=== PATIENT | male | born 1975 | race Two or more races ===

== ENCOUNTER 2021-03-04 18:39 | Inpatient (IN) | payer OTHER ==
[2021-03-04] MEDS ORDERED: MELATONIN 5 MG TABLETS PO SCH (22:00)
[2021-03-04] MEDS ORDERED: P-EPHED 60MG/TRIPROLIDI 2.5MG TABLET PO PRN (23:16)
[2021-03-04] MEDS ORDERED: NICOTINE POLACRILEX 2 MG GUM BC PRN (23:16)
[2021-03-04] MEDS ORDERED: LOPERAMIDE HCL 2 MG CAPSULE PO PRN (23:16)
[2021-03-04] MEDS ORDERED: MAG HYDROX/AL HYDROX/SIMETH 30 ML UNIT-DOSE CUP PO PRN (23:16)
[2021-03-04] MEDS ORDERED: MAGNESIUM CITRATE 300 ML BOTTLE PO PRN (23:16)
[2021-03-04] MEDS ORDERED: guaiFENesin 200 MG/10 ML 10 ML UNIT-DOSE CUPS PO PRN (23:16)
[2021-03-04] MEDS ORDERED: MAGNESIUM HYDROX 2400MG/30ML ORAL SUSPENSION 30 ML CUP PO PRN (23:16)
[2021-03-04] MEDS ORDERED: ACETAMINOPHEN 325 MG TABLET (FP) PO PRN (23:16)
[2021-03-04] MEDS ORDERED: IBUPROFEN 400 MG TABLET (FP) PO PRN (23:16)
[2021-03-05 04:07] VITALS: BMI 34.6
[2021-03-05] MEDS ORDERED: TUBERCULIN PPD 5 TU/0.1ML VIAL ID ONE (07:11)
[2021-03-05] MEDS ORDERED: methaDONE HCL 10 MG TABLET PO ONE (09:10)
[2021-03-05] MEDS ORDERED: methaDONE 40 MG, methaDONE 10 MG PO ONE (09:20)
[2021-03-05] MEDS ORDERED: methaDONE HCL 40 MG DISPERSABLE TABLET ONE (09:29)
[2021-03-05] MEDS ORDERED: methaDONE HCL 10 MG TABLET ONE (09:29)
[2021-03-05] MEDS: PRENATAL VITAMINS W/ FOLIC ACID TABLET (FP) PO SCH (09:39)
[2021-03-05 11:07] LABS: HEMATOCRIT 37.5 % (35.4-49); MCH 28.5 pg (25.7-33.7); MCHC 34.5 g/dl (32.0-35.9); MEAN CELL VOLUME 82.6 fl (80-96); MEAN PLT VOLUME 8.4 fl (7.5-11.1); PLATELET COUNT 296 10^3/uL (134-434); RBC 4.55 M/mm3 (4.00-5.60); RDW 14.8 % (11.9-15.9); WHITE BLOOD COUNT 6.9 K/mm3 (4.0-10.0)
[2021-03-05 11:19] LABS: ALBUMIN 3.4 g/dl (3.4-5.0); BLOOD UREA NITROGEN 20.9 mg/dL (7-18); CALCIUM 8.8 mg/dL (8.5-10.1)
[2021-03-05 11:22] LABS: CREATININE 0.8 mg/dL (0.55-1.3)
[2021-03-05 11:24] LABS: BILIRUBIN,TOTAL 0.7 mg/dL (0.2-1); TOT PROT 6.3 g/dl (6.4-8.2)
[2021-03-05] MEDS ORDERED: PT OWN MED DRAWER 7, Y5N ONE (21:27)
[2021-03-05] MEDS: SUVOREXANT 10 MG TABLET PO PRN (21:30)
[2021-03-05] MEDS: TIMOLOL 0.5% OPHTHALMIC SOL 5 ML BOTTLE OU SCH (21:33)
[2021-03-05] MEDS: LATANOPROST 0.005% OPHTH SOLN 2.5ML BOTTLE OU SCH (21:35)
[2021-03-05] MEDS: GABAPENTIN 300 MG CAPSULE PO SCH (21:36)
[2021-03-05] MEDS: THIAMINE HCL 100 MG TABLET (FP) PO SCH (21:36)
[2021-03-05] MEDS: hydrOXYzine PAMOATE 25 MG CAPSULE (FP) PO PRN (21:36)
[2021-03-05] MEDS: TOPIRAMATE 25 MG TABLET PO SCH (22:44)
[2021-03-06] MEDS ORDERED: methaDONE HCL 10 MG TABLET PO SCH (06:00)
[2021-03-06] MEDS ORDERED: methaDONE HCL 10 MG TABLET ONE (06:03)
[2021-03-06] MEDS ORDERED: methaDONE HCL 40 MG DISPERSABLE TABLET ONE (06:03)
[2021-03-06] MEDS: methaDONE 40 MG, methaDONE 10 MG PO SCH (07:21)
[2021-03-06] MEDS: GABAPENTIN 300 MG CAPSULE PO SCH ×2 (09:17→21:38)
[2021-03-06] MEDS: ESCITALOPRAM OXALATE 20 MG TABLET PO SCH (09:17)
[2021-03-06] MEDS: PRENATAL VITAMINS W/ FOLIC ACID TABLET (FP) PO SCH (09:17)
[2021-03-06] MEDS: TIMOLOL 0.5% OPHTHALMIC SOL 5 ML BOTTLE OU SCH ×2 (09:18→21:39)
[2021-03-06] MEDS: TOPIRAMATE 25 MG TABLET PO SCH ×2 (09:18→21:38)
[2021-03-06] MEDS: QUEtiapine FUMARATE 25 MG TABLET PO SCH (09:18)
[2021-03-06] MEDS ORDERED: ESCITALOPRAM OXALATE 20 MG TABLET PO SCH (10:00)
[2021-03-06 12:37] LABS: PH,URINE 5.5 (5.0-8.0); URINE APPEARANCE CLEAR; URINE BILIRUBIN NEGATIVE (NEGATIVE); URINE COLOR YELLOW; URINE GLUCOSE (UA) NEGATIVE (NEGATIVE); URINE KETONE NEGATIVE (NEGATIVE); URINE LEUK ESTERASE NEGATIVE (NEGATIVE); URINE NITRITE NEGATIVE (NEGATIVE); URINE PROTEIN NEGATIVE (NEGATIVE); URINE UROBILINOGEN 0.2 mg/dL (0.2-1.0)
[2021-03-06] MEDS: THIAMINE HCL 100 MG TABLET (FP) PO SCH (21:37)
[2021-03-06] MEDS: SUVOREXANT 10 MG TABLET PO PRN (21:38)
[2021-03-06] MEDS: LATANOPROST 0.005% OPHTH SOLN 2.5ML BOTTLE OU SCH (21:39)
[2021-03-07] MEDS ORDERED: methaDONE HCL 40 MG DISPERSABLE TABLET ONE (03:51)
[2021-03-07] MEDS ORDERED: methaDONE HCL 10 MG TABLET ONE (03:52)
[2021-03-07] MEDS: methaDONE 40 MG, methaDONE 10 MG PO SCH (07:07)
[2021-03-07] MEDS: ESCITALOPRAM OXALATE 20 MG TABLET PO SCH (09:46)
[2021-03-07] MEDS: TOPIRAMATE 25 MG TABLET PO SCH ×2 (09:47→21:19)
[2021-03-07] MEDS: GABAPENTIN 300 MG CAPSULE PO SCH ×2 (09:47→21:19)
[2021-03-07] MEDS: TIMOLOL 0.5% OPHTHALMIC SOL 5 ML BOTTLE OU SCH ×2 (09:47→21:20)
[2021-03-07] MEDS: PRENATAL VITAMINS W/ FOLIC ACID TABLET (FP) PO SCH (09:47)
[2021-03-07] MEDS: QUEtiapine FUMARATE 25 MG TABLET PO SCH (09:47)
[2021-03-07] MEDS: THIAMINE HCL 100 MG TABLET (FP) PO SCH (21:19)
[2021-03-07] MEDS: LATANOPROST 0.005% OPHTH SOLN 2.5ML BOTTLE OU SCH (21:20)
[2021-03-07] MEDS: SUVOREXANT 10 MG TABLET PO PRN (21:20)
[2021-03-08] MEDS ORDERED: methaDONE HCL 40 MG DISPERSABLE TABLET ONE (03:42)
[2021-03-08] MEDS ORDERED: methaDONE HCL 10 MG TABLET ONE (03:43)
[2021-03-08] MEDS: methaDONE 40 MG, methaDONE 10 MG PO SCH (06:21)
[2021-03-08] MEDS: GABAPENTIN 300 MG CAPSULE PO SCH ×2 (09:43→21:40)
[2021-03-08] MEDS: ESCITALOPRAM OXALATE 20 MG TABLET PO SCH (09:43)
[2021-03-08] MEDS: PRENATAL VITAMINS W/ FOLIC ACID TABLET (FP) PO SCH (09:44)
[2021-03-08] MEDS: QUEtiapine FUMARATE 25 MG TABLET PO SCH (09:44)
[2021-03-08] MEDS: TOPIRAMATE 25 MG TABLET PO SCH ×2 (09:44→21:40)
[2021-03-08] MEDS: TIMOLOL 0.5% OPHTHALMIC SOL 5 ML BOTTLE OU SCH ×2 (09:44→21:41)
[2021-03-08] MEDS ORDERED: PT OWN MED DRAWER 7, Y5N ONE (20:27)
[2021-03-08] MEDS: THIAMINE HCL 100 MG TABLET (FP) PO SCH (21:40)
[2021-03-08] MEDS: SUVOREXANT 10 MG TABLET PO PRN (21:40)
[2021-03-08] MEDS: LATANOPROST 0.005% OPHTH SOLN 2.5ML BOTTLE OU SCH (21:41)
[2021-03-09] MEDS ORDERED: methaDONE HCL 10 MG TABLET ONE (03:29)
[2021-03-09] MEDS ORDERED: methaDONE HCL 40 MG DISPERSABLE TABLET ONE (03:29)
[2021-03-09] MEDS: methaDONE 40 MG, methaDONE 10 MG PO SCH (06:16)
[2021-03-09] MEDS: PRENATAL VITAMINS W/ FOLIC ACID TABLET (FP) PO SCH (09:53)
[2021-03-09] MEDS: TOPIRAMATE 25 MG TABLET PO SCH ×2 (09:54→21:34)
[2021-03-09] MEDS: ESCITALOPRAM OXALATE 20 MG TABLET PO SCH (09:54)
[2021-03-09] MEDS: GABAPENTIN 300 MG CAPSULE PO SCH ×2 (10:49→21:34)
[2021-03-09] MEDS: QUEtiapine FUMARATE 25 MG TABLET PO SCH (10:49)
[2021-03-09] MEDS: TIMOLOL 0.5% OPHTHALMIC SOL 5 ML BOTTLE OU SCH ×2 (10:50→21:35)
[2021-03-09] MEDS: THIAMINE HCL 100 MG TABLET (FP) PO SCH (21:35)
[2021-03-09] MEDS: LATANOPROST 0.005% OPHTH SOLN 2.5ML BOTTLE OU SCH (21:35)
[2021-03-09] MEDS: SUVOREXANT 10 MG TABLET PO PRN (21:36)
[2021-03-10] MEDS ORDERED: methaDONE HCL 40 MG DISPERSABLE TABLET ONE (05:22)
[2021-03-10] MEDS ORDERED: methaDONE HCL 10 MG TABLET ONE (05:23)
[2021-03-10] MEDS: methaDONE 40 MG, methaDONE 10 MG PO SCH (06:34)
[2021-03-10] MEDS: ESCITALOPRAM OXALATE 20 MG TABLET PO SCH (09:16)
[2021-03-10] MEDS: PRENATAL VITAMINS W/ FOLIC ACID TABLET (FP) PO SCH (09:16)
[2021-03-10] MEDS: GABAPENTIN 300 MG CAPSULE PO SCH ×2 (09:16→21:06)
[2021-03-10] MEDS: QUEtiapine FUMARATE 25 MG TABLET PO SCH (09:16)
[2021-03-10] MEDS: TOPIRAMATE 25 MG TABLET PO SCH ×2 (09:16→21:06)
[2021-03-10] MEDS: TIMOLOL 0.5% OPHTHALMIC SOL 5 ML BOTTLE OU SCH ×2 (09:17→21:07)
[2021-03-10] MEDS: THIAMINE HCL 100 MG TABLET (FP) PO SCH (21:06)
[2021-03-10] MEDS: LATANOPROST 0.005% OPHTH SOLN 2.5ML BOTTLE OU SCH (21:07)
[2021-03-10] MEDS: SUVOREXANT 10 MG TABLET PO PRN (21:07)
[2021-03-11] MEDS ORDERED: methaDONE HCL 10 MG TABLET ONE (02:52)
[2021-03-11] MEDS ORDERED: methaDONE HCL 40 MG DISPERSABLE TABLET ONE (02:52)
[2021-03-11] MEDS: methaDONE 40 MG, methaDONE 10 MG PO SCH (06:40)
[2021-03-11] MEDS: PRENATAL VITAMINS W/ FOLIC ACID TABLET (FP) PO SCH (09:39)
[2021-03-11] MEDS: ESCITALOPRAM OXALATE 20 MG TABLET PO SCH (09:40)
[2021-03-11] MEDS: GABAPENTIN 300 MG CAPSULE PO SCH ×2 (09:40→21:18)
[2021-03-11] MEDS: TIMOLOL 0.5% OPHTHALMIC SOL 5 ML BOTTLE OU SCH ×2 (09:40→21:25)
[2021-03-11] MEDS: TOPIRAMATE 25 MG TABLET PO SCH ×2 (09:41→21:18)
[2021-03-11] MEDS: QUEtiapine FUMARATE 50 MG TABLET PO SCH (09:44)
[2021-03-11] MEDS: THIAMINE HCL 100 MG TABLET (FP) PO SCH (21:18)
[2021-03-11] MEDS: SUVOREXANT 10 MG TABLET PO PRN (21:19)
[2021-03-11] MEDS: LATANOPROST 0.005% OPHTH SOLN 2.5ML BOTTLE OU SCH (21:25)
[2021-03-12] MEDS ORDERED: methaDONE HCL 10 MG TABLET ONE (02:58)
[2021-03-12] MEDS ORDERED: methaDONE HCL 40 MG DISPERSABLE TABLET ONE (02:58)
[2021-03-12] MEDS: methaDONE 40 MG, methaDONE 10 MG PO SCH (06:51)
[2021-03-12] MEDS: ESCITALOPRAM OXALATE 20 MG TABLET PO SCH (09:37)
[2021-03-12] MEDS: PRENATAL VITAMINS W/ FOLIC ACID TABLET (FP) PO SCH (09:37)
[2021-03-12] MEDS: TOPIRAMATE 25 MG TABLET PO SCH ×2 (09:37→21:48)
[2021-03-12] MEDS: QUEtiapine FUMARATE 50 MG TABLET PO SCH (09:37)
[2021-03-12] MEDS: GABAPENTIN 300 MG CAPSULE PO SCH ×2 (09:37→21:47)
[2021-03-12] MEDS: TIMOLOL 0.5% OPHTHALMIC SOL 5 ML BOTTLE OU SCH ×2 (09:38→21:47)
[2021-03-12] MEDS: LATANOPROST 0.005% OPHTH SOLN 2.5ML BOTTLE OU SCH (21:48)
[2021-03-12] MEDS: THIAMINE HCL 100 MG TABLET (FP) PO SCH (21:48)
[2021-03-12] MEDS: hydrOXYzine PAMOATE 25 MG CAPSULE (FP) PO PRN (21:50)
[2021-03-12] MEDS: SUVOREXANT 10 MG TABLET PO PRN (21:50)
[2021-03-13] MEDS ORDERED: methaDONE HCL 40 MG DISPERSABLE TABLET ONE (03:36)
[2021-03-13] MEDS ORDERED: methaDONE HCL 10 MG TABLET ONE (03:36)
[2021-03-13] MEDS: methaDONE 40 MG, methaDONE 10 MG PO SCH (06:34)
[2021-03-13] MEDS: QUEtiapine FUMARATE 50 MG TABLET PO SCH (10:54)
[2021-03-13] MEDS: PRENATAL VITAMINS W/ FOLIC ACID TABLET (FP) PO SCH (10:54)
[2021-03-13] MEDS: GABAPENTIN 300 MG CAPSULE PO SCH ×2 (10:54→21:25)
[2021-03-13] MEDS: ESCITALOPRAM OXALATE 20 MG TABLET PO SCH (10:55)
[2021-03-13] MEDS: TOPIRAMATE 25 MG TABLET PO SCH ×2 (10:56→21:56)
[2021-03-13] MEDS: TIMOLOL 0.5% OPHTHALMIC SOL 5 ML BOTTLE OU SCH ×2 (10:56→21:57)
[2021-03-13] MEDS: THIAMINE HCL 100 MG TABLET (FP) PO SCH (21:25)
[2021-03-13] MEDS: hydrOXYzine PAMOATE 25 MG CAPSULE (FP) PO PRN (21:33)
[2021-03-13] MEDS: SUVOREXANT 10 MG TABLET PO PRN (21:56)
[2021-03-13] MEDS: LATANOPROST 0.005% OPHTH SOLN 2.5ML BOTTLE OU SCH (21:57)
[2021-03-14] MEDS ORDERED: methaDONE HCL 40 MG DISPERSABLE TABLET ONE (03:26)
[2021-03-14] MEDS ORDERED: methaDONE HCL 10 MG TABLET ONE (03:26)
[2021-03-14] MEDS: methaDONE 40 MG, methaDONE 10 MG PO SCH (06:21)
[2021-03-14] MEDS: QUEtiapine FUMARATE 50 MG TABLET PO SCH (10:21)
[2021-03-14] MEDS: PRENATAL VITAMINS W/ FOLIC ACID TABLET (FP) PO SCH (10:21)
[2021-03-14] MEDS: GABAPENTIN 300 MG CAPSULE PO SCH ×2 (10:21→22:00)
[2021-03-14] MEDS: ESCITALOPRAM OXALATE 20 MG TABLET PO SCH (10:21)
[2021-03-14] MEDS: TOPIRAMATE 25 MG TABLET PO SCH ×2 (10:22→22:00)
[2021-03-14] MEDS: TIMOLOL 0.5% OPHTHALMIC SOL 5 ML BOTTLE OU SCH ×2 (10:22→22:01)
[2021-03-14] MEDS: THIAMINE HCL 100 MG TABLET (FP) PO SCH (22:00)
[2021-03-14] MEDS: LATANOPROST 0.005% OPHTH SOLN 2.5ML BOTTLE OU SCH (22:01)
[2021-03-14] MEDS: SUVOREXANT 10 MG TABLET PO PRN (22:04)
[2021-03-15] MEDS ORDERED: methaDONE HCL 40 MG DISPERSABLE TABLET ONE (03:32)
[2021-03-15] MEDS ORDERED: methaDONE HCL 10 MG TABLET ONE (03:32)
[2021-03-15] MEDS: methaDONE 40 MG, methaDONE 10 MG PO SCH (07:05)
[2021-03-15] MEDS: QUEtiapine FUMARATE 50 MG TABLET PO SCH (10:28)
[2021-03-15] MEDS: ESCITALOPRAM OXALATE 20 MG TABLET PO SCH (10:28)
[2021-03-15] MEDS: GABAPENTIN 300 MG CAPSULE PO SCH ×2 (10:28→21:44)
[2021-03-15] MEDS: PRENATAL VITAMINS W/ FOLIC ACID TABLET (FP) PO SCH (10:28)
[2021-03-15] MEDS: TOPIRAMATE 25 MG TABLET PO SCH ×2 (10:29→21:47)
[2021-03-15] MEDS: TIMOLOL 0.5% OPHTHALMIC SOL 5 ML BOTTLE OU SCH ×2 (10:29→21:45)
[2021-03-15] MEDS: THIAMINE HCL 100 MG TABLET (FP) PO SCH (21:44)
[2021-03-15] MEDS: LATANOPROST 0.005% OPHTH SOLN 2.5ML BOTTLE OU SCH (21:45)
[2021-03-15] MEDS: SUVOREXANT 10 MG TABLET PO PRN (21:46)
[2021-03-16] MEDS ORDERED: methaDONE HCL 10 MG TABLET ONE (05:21)
[2021-03-16] MEDS ORDERED: methaDONE HCL 40 MG DISPERSABLE TABLET ONE (05:22)
[2021-03-16] MEDS: methaDONE 40 MG, methaDONE 10 MG PO SCH (06:21)
[2021-03-16] MEDS: PRENATAL VITAMINS W/ FOLIC ACID TABLET (FP) PO SCH (10:11)
[2021-03-16] MEDS: GABAPENTIN 300 MG CAPSULE PO SCH ×2 (10:11→21:37)
[2021-03-16] MEDS: QUEtiapine FUMARATE 50 MG TABLET PO SCH (10:11)
[2021-03-16] MEDS: ESCITALOPRAM OXALATE 20 MG TABLET PO SCH (10:11)
[2021-03-16] MEDS: TOPIRAMATE 25 MG TABLET PO SCH ×2 (10:12→21:36)
[2021-03-16] MEDS: TIMOLOL 0.5% OPHTHALMIC SOL 5 ML BOTTLE OU SCH ×2 (10:12→21:37)
[2021-03-16] MEDS: hydrOXYzine PAMOATE 25 MG CAPSULE (FP) PO PRN (10:12)
[2021-03-16] MEDS: THIAMINE HCL 100 MG TABLET (FP) PO SCH (21:36)
[2021-03-16] MEDS: LATANOPROST 0.005% OPHTH SOLN 2.5ML BOTTLE OU SCH (21:37)
[2021-03-16] MEDS: SUVOREXANT 10 MG TABLET PO PRN (21:40)
[2021-03-17] MEDS ORDERED: methaDONE HCL 40 MG DISPERSABLE TABLET ONE (03:18)
[2021-03-17] MEDS ORDERED: methaDONE HCL 10 MG TABLET ONE (03:18)
[2021-03-17] MEDS: methaDONE 40 MG, methaDONE 10 MG PO SCH (06:22)
[2021-03-17] MEDS: ESCITALOPRAM OXALATE 20 MG TABLET PO SCH (10:19)
[2021-03-17] MEDS: GABAPENTIN 300 MG CAPSULE PO SCH ×2 (10:19→21:26)
[2021-03-17] MEDS: PRENATAL VITAMINS W/ FOLIC ACID TABLET (FP) PO SCH (10:19)
[2021-03-17] MEDS: QUEtiapine FUMARATE 50 MG TABLET PO SCH (10:20)
[2021-03-17] MEDS: TOPIRAMATE 25 MG TABLET PO SCH ×2 (10:20→21:26)
[2021-03-17] MEDS: TIMOLOL 0.5% OPHTHALMIC SOL 5 ML BOTTLE OU SCH ×2 (10:22→21:24)
[2021-03-17] MEDS: hydrOXYzine PAMOATE 25 MG CAPSULE (FP) PO PRN ×2 (10:23→21:26)
[2021-03-17] MEDS: THIAMINE HCL 100 MG TABLET (FP) PO SCH (21:26)
[2021-03-17] MEDS: LATANOPROST 0.005% OPHTH SOLN 2.5ML BOTTLE OU SCH (21:27)
[2021-03-17] MEDS: SUVOREXANT 10 MG TABLET PO PRN (21:30)
[2021-03-18] MEDS ORDERED: methaDONE HCL 10 MG TABLET ONE (03:11)
[2021-03-18] MEDS ORDERED: methaDONE HCL 40 MG DISPERSABLE TABLET ONE (03:11)
[2021-03-18] MEDS: methaDONE 40 MG, methaDONE 10 MG PO SCH (06:22)
[2021-03-18] MEDS: GABAPENTIN 300 MG CAPSULE PO SCH ×2 (10:38→21:44)
[2021-03-18] MEDS: PRENATAL VITAMINS W/ FOLIC ACID TABLET (FP) PO SCH (10:38)
[2021-03-18] MEDS: TOPIRAMATE 25 MG TABLET PO SCH ×2 (10:39→21:44)
[2021-03-18] MEDS: TIMOLOL 0.5% OPHTHALMIC SOL 5 ML BOTTLE OU SCH ×2 (10:39→21:45)
[2021-03-18] MEDS: ESCITALOPRAM OXALATE 20 MG TABLET PO SCH (10:39)
[2021-03-18] MEDS: QUEtiapine FUMARATE 50 MG TABLET PO SCH (10:39)
[2021-03-18] MEDS: SUVOREXANT 10 MG TABLET PO PRN (21:44)
[2021-03-18] MEDS: THIAMINE HCL 100 MG TABLET (FP) PO SCH (21:44)
[2021-03-18] MEDS: LATANOPROST 0.005% OPHTH SOLN 2.5ML BOTTLE OU SCH (21:44)
[2021-03-19] MEDS ORDERED: methaDONE HCL 10 MG TABLET ONE (03:34)
[2021-03-19] MEDS ORDERED: methaDONE HCL 40 MG DISPERSABLE TABLET ONE (03:34)
[2021-03-19] MEDS: methaDONE 40 MG, methaDONE 10 MG PO SCH (06:15)
[2021-03-19] MEDS: PRENATAL VITAMINS W/ FOLIC ACID TABLET (FP) PO SCH (10:09)
[2021-03-19] MEDS: GABAPENTIN 300 MG CAPSULE PO SCH ×2 (10:10→22:09)
[2021-03-19] MEDS: ESCITALOPRAM OXALATE 20 MG TABLET PO SCH (10:10)
[2021-03-19] MEDS: QUEtiapine FUMARATE 50 MG TABLET PO SCH (10:10)
[2021-03-19] MEDS: TOPIRAMATE 25 MG TABLET PO SCH ×2 (10:11→22:14)
[2021-03-19] MEDS: TIMOLOL 0.5% OPHTHALMIC SOL 5 ML BOTTLE OU SCH ×2 (10:11→22:10)
[2021-03-19] MEDS: THIAMINE HCL 100 MG TABLET (FP) PO SCH (22:09)
[2021-03-19] MEDS: hydrOXYzine PAMOATE 25 MG CAPSULE (FP) PO PRN (22:10)
[2021-03-19] MEDS: SUVOREXANT 10 MG TABLET PO PRN (22:11)
[2021-03-19] MEDS: LATANOPROST 0.005% OPHTH SOLN 2.5ML BOTTLE OU SCH (22:23)
[2021-03-20] MEDS ORDERED: methaDONE HCL 40 MG DISPERSABLE TABLET ONE (05:35)
[2021-03-20] MEDS ORDERED: methaDONE HCL 10 MG TABLET ONE (05:35)
[2021-03-20] MEDS ORDERED: methaDONE HCL 10 MG TABLET PO SCH (06:00)
[2021-03-20] MEDS: methaDONE 40 MG, methaDONE 10 MG PO SCH (06:26)
[2021-03-20] MEDS: PRENATAL VITAMINS W/ FOLIC ACID TABLET (FP) PO SCH (10:17)
[2021-03-20] MEDS: GABAPENTIN 300 MG CAPSULE PO SCH ×2 (10:18→21:38)
[2021-03-20] MEDS: QUEtiapine FUMARATE 50 MG TABLET PO SCH (10:18)
[2021-03-20] MEDS: TOPIRAMATE 25 MG TABLET PO SCH ×2 (10:18→21:38)
[2021-03-20] MEDS: ESCITALOPRAM OXALATE 20 MG TABLET PO SCH (10:18)
[2021-03-20] MEDS: TIMOLOL 0.5% OPHTHALMIC SOL 5 ML BOTTLE OU SCH ×2 (10:19→21:38)
[2021-03-20] MEDS: hydrOXYzine PAMOATE 25 MG CAPSULE (FP) PO PRN (21:38)
[2021-03-20] MEDS: THIAMINE HCL 100 MG TABLET (FP) PO SCH (21:38)
[2021-03-20] MEDS: LATANOPROST 0.005% OPHTH SOLN 2.5ML BOTTLE OU SCH (21:38)
[2021-03-20] MEDS: SUVOREXANT 10 MG TABLET PO PRN (21:38)
[2021-03-20] MEDS ORDERED: SUVOREXANT 10 MG TABLET PO PRN (22:00)
[2021-03-21] MEDS ORDERED: methaDONE HCL 10 MG TABLET ONE (03:42)
[2021-03-21] MEDS ORDERED: methaDONE HCL 40 MG DISPERSABLE TABLET ONE (03:42)
[2021-03-21] MEDS: methaDONE 40 MG, methaDONE 10 MG PO SCH (07:23)
[2021-03-21] MEDS: PRENATAL VITAMINS W/ FOLIC ACID TABLET (FP) PO SCH (09:42)
[2021-03-21] MEDS: GABAPENTIN 300 MG CAPSULE PO SCH ×2 (09:43→21:39)
[2021-03-21] MEDS: QUEtiapine FUMARATE 50 MG TABLET PO SCH (09:43)
[2021-03-21] MEDS: hydrOXYzine PAMOATE 25 MG CAPSULE (FP) PO PRN ×2 (09:43→21:39)
[2021-03-21] MEDS: ESCITALOPRAM OXALATE 20 MG TABLET PO SCH (09:43)
[2021-03-21] MEDS: TIMOLOL 0.5% OPHTHALMIC SOL 5 ML BOTTLE OU SCH ×2 (09:44→21:39)
[2021-03-21] MEDS: TOPIRAMATE 25 MG TABLET PO SCH ×2 (09:46→21:39)
[2021-03-21] MEDS: LATANOPROST 0.005% OPHTH SOLN 2.5ML BOTTLE OU SCH (21:39)
[2021-03-21] MEDS: THIAMINE HCL 100 MG TABLET (FP) PO SCH (21:39)
[2021-03-22] MEDS ORDERED: methaDONE HCL 40 MG DISPERSABLE TABLET ONE (05:23)
[2021-03-22] MEDS ORDERED: methaDONE HCL 10 MG TABLET ONE (05:23)
[2021-03-22] MEDS: methaDONE 40 MG, methaDONE 10 MG PO SCH (06:27)
[2021-03-22 07:19] VITALS: BP 92/65; PULSE 67; TEMP 96.5
[2021-03-22] MEDS: hydrOXYzine PAMOATE 25 MG CAPSULE (FP) PO PRN (10:07)
[2021-03-22] MEDS: QUEtiapine FUMARATE 50 MG TABLET PO SCH (10:07)
[2021-03-22] MEDS: GABAPENTIN 300 MG CAPSULE PO SCH (10:08)
[2021-03-22] MEDS: ESCITALOPRAM OXALATE 20 MG TABLET PO SCH (10:08)
[2021-03-22] MEDS: PRENATAL VITAMINS W/ FOLIC ACID TABLET (FP) PO SCH (10:08)
[2021-03-22] MEDS: TIMOLOL 0.5% OPHTHALMIC SOL 5 ML BOTTLE OU SCH (10:09)
[2021-03-22] MEDS: TOPIRAMATE 25 MG TABLET PO SCH (10:11)
== END 2021-03-22 10:35 | disposition home or self-care (01) | DRG 772 ==
LOC: YASAS 18:39 → Y3E 03-05 03:26 → Y3W 03-05 22:42 → Y3E 03-12 15:33 → Y5N 03-12 16:48
PROVIDERS: ADMIT Allergy & Immunology; ATTEND Allergy & Immunology
PROC: HZ42ZZZ Group Counseling for Substance Abuse Treatment, Cognitive-Behavioral (ICD-10-PCS; principal; 2021-03-05)
DX: F11.20 Opioid dependence, uncomplicated (principal); F10.20 Alcohol dependence, uncomplicated; F14.20 Cocaine dependence, uncomplicated; F13.20 Sedative, hypnotic or anxiolytic dependence, uncomplicated; F17.210 Nicotine dependence, cigarettes, uncomplicated; F19.282 Other psychoactive substance dependence with psychoactive substance-induced sleep disorder; F19.280 Other psychoactive substance dependence with psychoactive substance-induced anxiety disorder; F19.24 Other psychoactive substance dependence with psychoactive substance-induced mood disorder; F31.9 Bipolar disorder, unspecified; F41.8 Other specified anxiety disorders; I10 Essential (primary) hypertension; J45.909 Unspecified asthma, uncomplicated; R44.0 Auditory hallucinations; R73.03 Prediabetes; Z86.69 Personal history of other diseases of the nervous system and sense organs
CPT/HCPCS: 36415; 80053; 81003; 82962; 85027; 86780; C9803; U0003; U0005

== ENCOUNTER 2021-10-30 17:22 | Inpatient (IN) | payer OTHER ==
[2021-10-30 19:23] VITALS: BMI 28.3
[2021-10-30] MEDS ORDERED: MAGNESIUM CITRATE 300 ML BOTTLE PO PRN (19:35)
[2021-10-30] MEDS ORDERED: guaiFENesin 200 MG/10 ML 10 ML UNIT-DOSE CUPS PO PRN (19:35)
[2021-10-30] MEDS ORDERED: IBUPROFEN 400 MG TABLET (FP) PO PRN (19:35)
[2021-10-30] MEDS ORDERED: NICOTINE 10 MG CARTRIDGE (INHALER) IH PRN (19:35)
[2021-10-30] MEDS ORDERED: LOPERAMIDE HCL 2 MG CAPSULE PO PRN (19:35)
[2021-10-30] MEDS ORDERED: NICOTINE POLACRILEX 2 MG GUM BC PRN (19:35)
[2021-10-30] MEDS ORDERED: MELATONIN 5 MG TABLETS PO PRN (19:35)
[2021-10-30] MEDS ORDERED: ACETAMINOPHEN 325 MG TABLET (FP) PO PRN (19:35)
[2021-10-30] MEDS ORDERED: BENZOCAINE/MENTHOL (CHLORASEPTIC ) LOZENGE MM PRN (19:35)
[2021-10-30] MEDS ORDERED: NICOTINE 7 MG/24 HOURS TOPICAL PATCH TD PRN (19:35)
[2021-10-30] MEDS ORDERED: MAGNESIUM HYDROX 2400MG/30ML ORAL SUSPENSION 30 ML CUP PO PRN (19:35)
[2021-10-30] MEDS ORDERED: MAG HYDROX/AL HYDROX/SIMETH 30 ML UNIT-DOSE CUP PO PRN (19:35)
[2021-10-30] MEDS ORDERED: P-EPHED 60MG/TRIPROLIDI 2.5MG TABLET PO PRN (19:35)
[2021-10-31] MEDS: TIMOLOL 0.5% OPHTHALMIC SOL 5 ML BOTTLE OU SCH ×3 (00:53→21:20)
[2021-10-31] MEDS: LATANOPROST 0.005% OPHTH SOLN 2.5ML BOTTLE OU SCH ×2 (00:53→21:20)
[2021-10-31] MEDS: THIAMINE HCL 100 MG TABLET (FP) PO SCH ×2 (00:53→21:18)
[2021-10-31] MEDS: PRENATAL VITAMINS W/ FOLIC ACID TABLET (FP) PO SCH (10:23)
[2021-10-31] MEDS: GABAPENTIN 300 MG CAPSULE PO SCH ×2 (10:25→21:17)
[2021-10-31] MEDS: QUEtiapine FUMARATE 50 MG TABLET PO SCH (10:25)
[2021-10-31] MEDS: ESCITALOPRAM OXALATE 20 MG TABLET PO SCH (10:25)
[2021-10-31 16:44] LABS: PH,URINE 7.5 (5.0-8.0); URINE APPEARANCE CLEAR; URINE BILIRUBIN NEGATIVE (NEGATIVE); URINE COLOR YELLOW; URINE GLUCOSE (UA) NEGATIVE (NEGATIVE); URINE KETONE NEGATIVE (NEGATIVE); URINE LEUK ESTERASE NEGATIVE (NEGATIVE); URINE NITRITE NEGATIVE (NEGATIVE); URINE PROTEIN NEGATIVE (NEGATIVE); URINE UROBILINOGEN 0.2 mg/dL (0.2-1.0)
[2021-10-31] MEDS ORDERED: methaDONE HCL 10 MG TABLET PO ONE (19:14)
[2021-10-31] MEDS: TOPIRAMATE 25 MG TABLET PO SCH ×2 (21:17→21:19)
[2021-11-01] MEDS ORDERED: METHADONE PO SCH (06:00)
[2021-11-01 07:14] VITALS: RESP 18
[2021-11-01] MEDS: ESCITALOPRAM OXALATE 20 MG TABLET PO SCH (10:14)
[2021-11-01] MEDS: GABAPENTIN 300 MG CAPSULE PO SCH ×2 (10:14→21:27)
[2021-11-01] MEDS: QUEtiapine FUMARATE 50 MG TABLET PO SCH (10:14)
[2021-11-01] MEDS: PRENATAL VITAMINS W/ FOLIC ACID TABLET (FP) PO SCH (10:15)
[2021-11-01] MEDS: TIMOLOL 0.5% OPHTHALMIC SOL 5 ML BOTTLE OU SCH ×2 (10:15→21:28)
[2021-11-01] MEDS: TOPIRAMATE 25 MG TABLET PO SCH ×2 (12:29→21:27)
[2021-11-01] MEDS: LATANOPROST 0.005% OPHTH SOLN 2.5ML BOTTLE OU SCH (21:28)
[2021-11-01] MEDS: THIAMINE HCL 100 MG TABLET (FP) PO SCH (21:28)
[2021-11-02] MEDS: GABAPENTIN 300 MG CAPSULE PO SCH ×2 (10:04→21:35)
[2021-11-02] MEDS: PRENATAL VITAMINS W/ FOLIC ACID TABLET (FP) PO SCH (10:04)
[2021-11-02] MEDS: QUEtiapine FUMARATE 50 MG TABLET PO SCH (10:04)
[2021-11-02] MEDS: ESCITALOPRAM OXALATE 20 MG TABLET PO SCH (10:04)
[2021-11-02] MEDS: TOPIRAMATE 25 MG TABLET PO SCH ×2 (10:05→21:35)
[2021-11-02] MEDS: TIMOLOL 0.5% OPHTHALMIC SOL 5 ML BOTTLE OU SCH ×2 (10:05→21:35)
[2021-11-02 10:55] LABS: CALCIUM 8.9 mg/dL (8.5-10.1)
[2021-11-02 10:56] LABS: ALBUMIN 3.3 g/dl (3.4-5.0); BLOOD UREA NITROGEN 17.7 mg/dL (7-18)
[2021-11-02 11:00] LABS: BILIRUBIN,TOTAL 0.4 mg/dL (0.2-1); TOT PROT 7.4 g/dl (6.4-8.2)
[2021-11-02 11:03] LABS: HEMATOCRIT 39.1 % (35.4-49); HEMOGLOBIN 12.9 GM/dL (11.7-16.9); MCH 27.4 pg (25.7-33.7); MCHC 32.9 g/dl (32.0-35.9); MEAN CELL VOLUME 83.2 fl (80-96); MEAN PLT VOLUME 9.1 fl (7.5-11.1); PLATELET COUNT 317 10^3/uL (134-434); RDW 14.2 % (11.9-15.9); WHITE BLOOD COUNT 9.5 K/mm3 (4.0-10.0)
[2021-11-02 11:58] LABS: SYPHILIS W/ RPR CONF NON-REACTIVE (NONREACTIVE)
[2021-11-02] MEDS: THIAMINE HCL 100 MG TABLET (FP) PO SCH (21:35)
[2021-11-02] MEDS: SUVOREXANT 10 MG TABLET PO PRN (21:35)
[2021-11-02] MEDS: hydrOXYzine PAMOATE 25 MG CAPSULE (FP) PO PRN (21:37)
[2021-11-02] MEDS: LATANOPROST 0.005% OPHTH SOLN 2.5ML BOTTLE OU SCH (21:39)
[2021-11-03] MEDS: PRENATAL VITAMINS W/ FOLIC ACID TABLET (FP) PO SCH (10:03)
[2021-11-03] MEDS: QUEtiapine FUMARATE 50 MG TABLET PO SCH (10:04)
[2021-11-03] MEDS: TOPIRAMATE 25 MG TABLET PO SCH ×2 (10:04→21:27)
[2021-11-03] MEDS: TIMOLOL 0.5% OPHTHALMIC SOL 5 ML BOTTLE OU SCH ×2 (10:04→21:27)
[2021-11-03] MEDS: GABAPENTIN 300 MG CAPSULE PO SCH ×2 (10:04→21:27)
[2021-11-03] MEDS: ESCITALOPRAM OXALATE 20 MG TABLET PO SCH (10:04)
[2021-11-03] MEDS: hydrOXYzine PAMOATE 25 MG CAPSULE (FP) PO PRN (10:05)
[2021-11-03] MEDS: SUVOREXANT 10 MG TABLET PO PRN (21:28)
[2021-11-03] MEDS: THIAMINE HCL 100 MG TABLET (FP) PO SCH (21:28)
[2021-11-03] MEDS: LATANOPROST 0.005% OPHTH SOLN 2.5ML BOTTLE OU SCH (21:37)
[2021-11-04] MEDS: ESCITALOPRAM OXALATE 20 MG TABLET PO SCH (10:05)
[2021-11-04] MEDS: TIMOLOL 0.5% OPHTHALMIC SOL 5 ML BOTTLE OU SCH ×2 (10:05→21:33)
[2021-11-04] MEDS: PRENATAL VITAMINS W/ FOLIC ACID TABLET (FP) PO SCH (10:05)
[2021-11-04] MEDS: TOPIRAMATE 25 MG TABLET PO SCH ×2 (10:05→21:17)
[2021-11-04] MEDS: QUEtiapine FUMARATE 50 MG TABLET PO SCH (10:05)
[2021-11-04] MEDS: GABAPENTIN 300 MG CAPSULE PO SCH ×2 (10:05→21:17)
[2021-11-04] MEDS: THIAMINE HCL 100 MG TABLET (FP) PO SCH (21:17)
[2021-11-04] MEDS: hydrOXYzine PAMOATE 25 MG CAPSULE (FP) PO PRN (21:18)
[2021-11-04] MEDS: LATANOPROST 0.005% OPHTH SOLN 2.5ML BOTTLE OU SCH (21:33)
[2021-11-05] MEDS: QUEtiapine FUMARATE 50 MG TABLET PO SCH (09:52)
[2021-11-05] MEDS: GABAPENTIN 300 MG CAPSULE PO SCH ×2 (09:52→21:33)
[2021-11-05] MEDS: ESCITALOPRAM OXALATE 20 MG TABLET PO SCH (09:52)
[2021-11-05] MEDS: PRENATAL VITAMINS W/ FOLIC ACID TABLET (FP) PO SCH (09:52)
[2021-11-05] MEDS: TOPIRAMATE 25 MG TABLET PO SCH ×2 (09:53→21:32)
[2021-11-05] MEDS: TIMOLOL 0.5% OPHTHALMIC SOL 5 ML BOTTLE OU SCH ×2 (09:54→21:54)
[2021-11-05] MEDS: SUVOREXANT 10 MG TABLET PO PRN (21:32)
[2021-11-05] MEDS: THIAMINE HCL 100 MG TABLET (FP) PO SCH (21:33)
[2021-11-05] MEDS: LATANOPROST 0.005% OPHTH SOLN 2.5ML BOTTLE OU SCH (21:33)
[2021-11-06] MEDS: ESCITALOPRAM OXALATE 20 MG TABLET PO SCH (10:00)
[2021-11-06] MEDS: QUEtiapine FUMARATE 50 MG TABLET PO SCH (10:00)
[2021-11-06] MEDS: PRENATAL VITAMINS W/ FOLIC ACID TABLET (FP) PO SCH (10:00)
[2021-11-06] MEDS: GABAPENTIN 300 MG CAPSULE PO SCH ×2 (10:00→21:31)
[2021-11-06] MEDS: TIMOLOL 0.5% OPHTHALMIC SOL 5 ML BOTTLE OU SCH ×2 (10:00→21:31)
[2021-11-06] MEDS: hydrOXYzine PAMOATE 25 MG CAPSULE (FP) PO PRN (10:02)
[2021-11-06] MEDS: TOPIRAMATE 25 MG TABLET PO SCH ×2 (10:03→21:31)
[2021-11-06] MEDS: LATANOPROST 0.005% OPHTH SOLN 2.5ML BOTTLE OU SCH (21:30)
[2021-11-06] MEDS: SUVOREXANT 10 MG TABLET PO PRN (21:30)
[2021-11-06] MEDS: THIAMINE HCL 100 MG TABLET (FP) PO SCH (21:31)
[2021-11-07] MEDS: ESCITALOPRAM OXALATE 20 MG TABLET PO SCH (09:52)
[2021-11-07] MEDS: PRENATAL VITAMINS W/ FOLIC ACID TABLET (FP) PO SCH (09:52)
[2021-11-07] MEDS: GABAPENTIN 300 MG CAPSULE PO SCH ×2 (09:52→21:30)
[2021-11-07] MEDS: QUEtiapine FUMARATE 50 MG TABLET PO SCH ×2 (09:52→21:33)
[2021-11-07] MEDS: TIMOLOL 0.5% OPHTHALMIC SOL 5 ML BOTTLE OU SCH ×2 (10:00→21:33)
[2021-11-07] MEDS: TOPIRAMATE 25 MG TABLET PO SCH ×2 (10:00→21:30)
[2021-11-07] MEDS: THIAMINE HCL 100 MG TABLET (FP) PO SCH (21:30)
[2021-11-07] MEDS: SUVOREXANT 10 MG TABLET PO PRN (21:31)
[2021-11-07] MEDS: LATANOPROST 0.005% OPHTH SOLN 2.5ML BOTTLE OU SCH (21:31)
[2021-11-08] MEDS: PRENATAL VITAMINS W/ FOLIC ACID TABLET (FP) PO SCH (10:09)
[2021-11-08] MEDS: ESCITALOPRAM OXALATE 20 MG TABLET PO SCH (10:10)
[2021-11-08] MEDS: GABAPENTIN 300 MG CAPSULE PO SCH ×2 (10:10→21:21)
[2021-11-08] MEDS: QUEtiapine FUMARATE 50 MG TABLET PO SCH ×2 (10:10→21:21)
[2021-11-08] MEDS: TOPIRAMATE 25 MG TABLET PO SCH ×2 (10:10→21:21)
[2021-11-08] MEDS: TIMOLOL 0.5% OPHTHALMIC SOL 5 ML BOTTLE OU SCH ×2 (10:12→21:40)
[2021-11-08] MEDS: THIAMINE HCL 100 MG TABLET (FP) PO SCH (21:21)
[2021-11-08] MEDS: SUVOREXANT 10 MG TABLET PO PRN (21:22)
[2021-11-08] MEDS: LATANOPROST 0.005% OPHTH SOLN 2.5ML BOTTLE OU SCH (21:40)
[2021-11-09] MEDS: ESCITALOPRAM OXALATE 20 MG TABLET PO SCH (10:02)
[2021-11-09] MEDS: PRENATAL VITAMINS W/ FOLIC ACID TABLET (FP) PO SCH (10:02)
[2021-11-09] MEDS: QUEtiapine FUMARATE 50 MG TABLET PO SCH ×2 (10:02→21:25)
[2021-11-09] MEDS: GABAPENTIN 300 MG CAPSULE PO SCH ×2 (10:02→21:25)
[2021-11-09] MEDS: TOPIRAMATE 25 MG TABLET PO SCH ×2 (10:03→21:25)
[2021-11-09] MEDS: TIMOLOL 0.5% OPHTHALMIC SOL 5 ML BOTTLE OU SCH ×2 (10:03→21:31)
[2021-11-09] MEDS: LATANOPROST 0.005% OPHTH SOLN 2.5ML BOTTLE OU SCH (21:25)
[2021-11-09] MEDS: THIAMINE HCL 100 MG TABLET (FP) PO SCH (21:26)
[2021-11-10] MEDS: TOPIRAMATE 25 MG TABLET PO SCH ×2 (10:12→21:24)
[2021-11-10] MEDS: ESCITALOPRAM OXALATE 20 MG TABLET PO SCH (10:12)
[2021-11-10] MEDS: QUEtiapine FUMARATE 50 MG TABLET PO SCH ×2 (10:12→21:24)
[2021-11-10] MEDS: PRENATAL VITAMINS W/ FOLIC ACID TABLET (FP) PO SCH (10:12)
[2021-11-10] MEDS: GABAPENTIN 300 MG CAPSULE PO SCH ×2 (10:12→21:24)
[2021-11-10] MEDS: TIMOLOL 0.5% OPHTHALMIC SOL 5 ML BOTTLE OU SCH ×2 (10:13→23:05)
[2021-11-10] MEDS: THIAMINE HCL 100 MG TABLET (FP) PO SCH (21:24)
[2021-11-10] MEDS: SUVOREXANT 10 MG TABLET PO PRN (21:26)
[2021-11-10] MEDS ORDERED: SUVOREXANT 10 MG TABLET PO PRN (22:00)
[2021-11-10] MEDS: LATANOPROST 0.005% OPHTH SOLN 2.5ML BOTTLE OU SCH (23:05)
[2021-11-11] MEDS: GABAPENTIN 300 MG CAPSULE PO SCH ×2 (09:50→21:35)
[2021-11-11] MEDS: ESCITALOPRAM OXALATE 20 MG TABLET PO SCH (09:50)
[2021-11-11] MEDS: PRENATAL VITAMINS W/ FOLIC ACID TABLET (FP) PO SCH (09:50)
[2021-11-11] MEDS: QUEtiapine FUMARATE 50 MG TABLET PO SCH ×2 (09:50→21:35)
[2021-11-11] MEDS: TOPIRAMATE 25 MG TABLET PO SCH ×2 (09:50→21:35)
[2021-11-11] MEDS: TIMOLOL 0.5% OPHTHALMIC SOL 5 ML BOTTLE OU SCH ×2 (09:51→21:36)
[2021-11-11] MEDS: hydrOXYzine PAMOATE 25 MG CAPSULE (FP) PO PRN ×2 (09:51→21:35)
[2021-11-11] MEDS: TOLNAFTATE 1% CREAM 15 GM TUBE TP SCH ×2 (12:12→21:37)
[2021-11-11] MEDS: THIAMINE HCL 100 MG TABLET (FP) PO SCH (21:35)
[2021-11-11] MEDS: LATANOPROST 0.005% OPHTH SOLN 2.5ML BOTTLE OU SCH (21:37)
[2021-11-12] MEDS: hydrOXYzine PAMOATE 25 MG CAPSULE (FP) PO PRN (06:14)
[2021-11-12 06:59] VITALS: BP 107/72; PULSE 70; TEMP 97.3
[2021-11-12] MEDS: PRENATAL VITAMINS W/ FOLIC ACID TABLET (FP) PO SCH (09:04)
[2021-11-12] MEDS: TOPIRAMATE 25 MG TABLET PO SCH (09:04)
[2021-11-12] MEDS: QUEtiapine FUMARATE 50 MG TABLET PO SCH (09:05)
[2021-11-12] MEDS: ESCITALOPRAM OXALATE 20 MG TABLET PO SCH (09:05)
[2021-11-12] MEDS: GABAPENTIN 300 MG CAPSULE PO SCH (09:05)
[2021-11-12] MEDS: TOLNAFTATE 1% CREAM 15 GM TUBE TP SCH (09:06)
[2021-11-12] MEDS: TIMOLOL 0.5% OPHTHALMIC SOL 5 ML BOTTLE OU SCH (09:06)
== END 2021-11-12 09:35 | disposition home or self-care (01) | DRG 772 ==
LOC: YASAS 17:22 → Y5N 21:52
PROVIDERS: ADMIT Allergy & Immunology; ATTEND Psychiatry & Neurology Pain Medicine
PROC: HZ42ZZZ Group Counseling for Substance Abuse Treatment, Cognitive-Behavioral (ICD-10-PCS; principal; 2021-10-30)
DX: F11.20 Opioid dependence, uncomplicated (principal); F10.20 Alcohol dependence, uncomplicated; F14.20 Cocaine dependence, uncomplicated; F13.20 Sedative, hypnotic or anxiolytic dependence, uncomplicated; F12.20 Cannabis dependence, uncomplicated; F17.210 Nicotine dependence, cigarettes, uncomplicated; F25.9 Schizoaffective disorder, unspecified; F31.9 Bipolar disorder, unspecified; F19.282 Other psychoactive substance dependence with psychoactive substance-induced sleep disorder; F19.280 Other psychoactive substance dependence with psychoactive substance-induced anxiety disorder; F19.24 Other psychoactive substance dependence with psychoactive substance-induced mood disorder; I10 Essential (primary) hypertension; J45.909 Unspecified asthma, uncomplicated; B35.3 Tinea pedis; R73.03 Prediabetes; R63.4 Abnormal weight loss; Z68.28 Body mass index [BMI] 28.0-28.9, adult; Z56.0 Unemployment, unspecified; Z59.00 Homelessness unspecified
CPT/HCPCS: 36415; 80053; 81003; 82962; 85027; 86780; 86803; 87522; 87811; C9803-CS; U0003; U0005

== ENCOUNTER 2024-04-02 11:16 | Inpatient (IN) | payer OTHER ==
[2024-04-02 11:37] VITALS: BMI 25.2
[2024-04-02] MEDS ORDERED: DOCUSATE SODIUM 100 MG CAPSULE (FP) PO PRN (11:48)
[2024-04-02] MEDS ORDERED: P-EPHED 60MG/TRIPROLIDI 2.5MG TABLET PO PRN (11:48)
[2024-04-02] MEDS ORDERED: NALOXONE (NARCAN) HCL 4 MG/0.1 ML SPRAY NS PRN (11:48)
[2024-04-02] MEDS ORDERED: MAGNESIUM HYDROX 2400MG/30ML ORAL SUSPENSION 30 ML CUP PO PRN (11:48)
[2024-04-02] MEDS ORDERED: guaiFENesin 600 MG TABLET.ER (FP) PO PRN (11:48)
[2024-04-02] MEDS ORDERED: BENZOCAINE/MENTHOL (CHLORASEPTIC ) LOZENGE MM PRN (11:48)
[2024-04-02] MEDS ORDERED: hydrOXYzine PAMOATE 25 MG CAPSULE (FP) PO PRN (11:48)
[2024-04-02] MEDS ORDERED: BISACODYL 5 MG TABLET.DR (FP) PO PRN (11:48)
[2024-04-02] MEDS ORDERED: NICOTINE POLACRILEX 2 MG LOZENGE BC PRN (11:48)
[2024-04-02] MEDS ORDERED: POLYETHYLENE GLYCOL (HEALTHYLAX) 3350 17 GM PACKET PO PRN (11:48)
[2024-04-02] MEDS ORDERED: ACETAMINOPHEN 325 MG TABLET (FP) PO PRN (11:48)
[2024-04-02] MEDS ORDERED: BENZONATATE 200 MG CAPSULE PO PRN (11:48)
[2024-04-02] MEDS ORDERED: IBUPROFEN 400 MG TABLET (FP) PO PRN (11:48)
[2024-04-02] MEDS: MELATONIN 5 MG TABLETS PO SCH (21:24)
[2024-04-02] MEDS: THIAMINE 100 MG TABLET PO SCH (21:24)
[2024-04-02] MEDS: TIMOLOL 0.5% OPHTHALMIC SOL 5 ML BOTTLE OU SCH (22:11)
[2024-04-02] MEDS: LATANOPROST 0.005% OPHTH SOLN 2.5ML BOTTLE OU SCH (22:13)
[2024-04-03] MEDS ORDERED: methaDONE HCL 40 MG DISPERSABLE TABLET PO SCH (06:00)
[2024-04-03] MEDS: PRENATAL VITAMINS W/ FOLIC ACID TABLET (FP) PO SCH (09:59)
[2024-04-03] MEDS: FLU VACCINE (FLULAVAL) PF 45 MCG/0.5 ML SYRINGE 2024-2025 IM ONE (11:08)
[2024-04-03 11:43] LABS: PH,URINE 5.5 (5.0-8.0); URINE APPEARANCE CLEAR; URINE BILIRUBIN NEGATIVE (NEGATIVE); URINE COLOR YELLOW; URINE GLUCOSE (UA) NEGATIVE (NEGATIVE); URINE KETONE TRACE (NEGATIVE); URINE LEUK ESTERASE NEGATIVE (NEGATIVE); URINE NITRITE NEGATIVE (NEGATIVE); URINE PROTEIN NEGATIVE (NEGATIVE); URINE UROBILINOGEN 0.2 mg/dL (0.2-1.0)
[2024-04-03 11:54] LABS: HEMATOCRIT 39.5 % (35.4-49); MCH 27.6 pg (25.7-33.7); MCHC 32.9 g/dl (32.0-35.9); MEAN PLT VOLUME 9.1 fl (7.5-11.1); PLATELET COUNT 299 10^3/uL (134-434); RDW 14.5 % (11.9-15.9); WHITE BLOOD COUNT 8.2 K/mm3 (4.0-10.0)
[2024-04-03 12:13] LABS: CALCIUM 9.1 mg/dL (8.5-10.1)
[2024-04-03 12:14] LABS: ALBUMIN 3.2 g/dl (3.4-5.0); BLOOD UREA NITROGEN 17.2 mg/dL (7-18)
[2024-04-03 12:17] LABS: CREATININE 0.8 mg/dL (0.55-1.3)
[2024-04-03 12:18] LABS: BILIRUBIN,TOTAL 0.3 mg/dL (0.2-1); TOT PROT 6.1 g/dl (6.4-8.2)
[2024-04-03 12:44] LABS: HIV INTERPRETATION NEGATIVE (NEGATIVE)
[2024-04-03] MEDS ORDERED: INSULIN ASPART SLIDING SCALE (NOVOLOG) 1 VIAL SQ ONE (16:43)
[2024-04-03] MEDS: NICOTINE POLACRILEX 2 MG GUM BUC PRN (17:02)
[2024-04-04] MEDS: clonazePAM 1 MG ODT TABLETS SL SCH (10:34)
[2024-04-04] MEDS: FLUoxetine HCL 10 MG TABLET PO SCH (10:34)
[2024-04-04] MEDS: SUVOREXANT 10 MG TABLET PO PRN (21:19)
[2024-04-04] MEDS: PATIENT'S OWN MEDICATION (NON-FORMULARY) (Cariprazine Hcl [Vraylar] 1.5 MG Capsule) PO ONE (21:20)
[2024-04-05] MEDS ORDERED: NICOTINE POLACRILEX 2 MG LOZENGE BC PRN (08:41)
[2024-04-05] MEDS ORDERED: NICOTINE 7 MG/24 HOURS TOPICAL PATCH TD SCH (11:32)
[2024-04-05] MEDS: NICOTINE 7 MG/24 HOURS TOPICAL PATCH TD SCH (12:02)
[2024-04-05] MEDS: NICOTINE 14 MG/24 HOURS TOPICAL PATCH TD SCH (12:03)
[2024-04-05] MEDS: PATIENT'S OWN MEDICATION (NON-FORMULARY) (Cariprazine Hcl [Vraylar] 4.5 MG Capsule) PO SCH (21:10)
[2024-04-05] MEDS: SUVOREXANT 15 MG TABLET PO PRN (21:50)
[2024-04-07] MEDS: IBUPROFEN 600 MG TABLET (FP) PO PRN (17:57)
[2024-04-07] MEDS: SUVOREXANT 15 MG TABLET PO PRN (21:12)
[2024-04-08] MEDS: NICOTINE POLACRILEX 2 MG GUM BUC PRN (05:15)
[2024-04-09] MEDS: BACLOFEN 10 MG TABLET (FP) PO SCH (11:40)
[2024-04-09] MEDS ORDERED: SUVOREXANT 5 MG TABLET PO PRN (22:00)
[2024-04-10] MEDS: SUVOREXANT 15 MG TABLET PO PRN (21:22)
[2024-04-11] MEDS: clonazePAM 1 MG ODT TABLETS SL SCH (10:03)
[2024-04-12] MEDS ORDERED: SUVOREXANT 15 MG TABLET PO PRN (22:00)
[2024-04-13] MEDS: CALAMINE 8% TOPICAL LOTION 177 ML BOTTLE TP PRN (18:50)
[2024-04-14] MEDS: SUVOREXANT 15 MG TABLET PO PRN (21:40)
[2024-04-15] MEDS ORDERED: BENZOCAINE 20 % GEL TUBE MM PRN (09:06)
[2024-04-15] MEDS: BACLOFEN 10 MG TABLET (FP) PO SCH (10:42)
[2024-04-15] MEDS: AMOX TR/POT CLAV 500MG/125MG TABLETS (FP) PO SCH (10:42)
[2024-04-15] MEDS: LIDOCAINE 5% TOPICAL PATCH TP SCH (10:44)
[2024-04-15] MEDS: LIDOCAINE PATCH REMOVAL MC SCH (21:07)
[2024-04-16] MEDS ORDERED: methaDONE HCL 10 MG TABLET PO SCH (06:00)
[2024-04-16] MEDS: FLUoxetine HCL 10 MG CAPSULE PO SCH (10:09)
[2024-04-16] MEDS: SUVOREXANT 15 MG TABLET PO PRN (21:34)
[2024-04-17] MEDS: MAG HYDROX/AL HYDROX/SIMETH 30 ML UNIT-DOSE CUP PO PRN (21:05)
[2024-04-18] MEDS: LOPERAMIDE HCL 2 MG CAPSULE PO PRN (02:14)
[2024-04-18 05:16] VITALS: RESP 16; TEMP 97.1
[2024-04-18] MEDS: clonazePAM 1 MG ODT TABLETS SL SCH (09:11)
[2024-04-18 09:18] VITALS: BP 110/72; PULSE 88
[2024-04-18] MEDS ORDERED: SUVOREXANT 15 MG TABLET PO PRN (22:00)
[2024-04-19] MEDS ORDERED: methaDONE HCL 10 MG TABLET PO SCH (06:00)
[2024-04-22] MEDS ORDERED: methaDONE HCL 10 MG TABLET PO SCH (06:00)
== END 2024-04-18 09:56 | disposition home or self-care (01) | DRG 772 ==
LOC: YASAS 11:16 → Y3W 12:53
PROVIDERS: ADMIT Psychiatry & Neurology Pain Medicine; ATTEND Psychiatry & Neurology Pain Medicine
PROC: HZ42ZZZ Group Counseling for Substance Abuse Treatment, Cognitive-Behavioral (ICD-10-PCS; principal; 2024-04-02)
DX: F14.20 Cocaine dependence, uncomplicated (principal); F11.20 Opioid dependence, uncomplicated; F10.20 Alcohol dependence, uncomplicated; F17.210 Nicotine dependence, cigarettes, uncomplicated; F19.282 Other psychoactive substance dependence with psychoactive substance-induced sleep disorder; F19.280 Other psychoactive substance dependence with psychoactive substance-induced anxiety disorder; F19.24 Other psychoactive substance dependence with psychoactive substance-induced mood disorder; F25.9 Schizoaffective disorder, unspecified; F31.9 Bipolar disorder, unspecified; F41.9 Anxiety disorder, unspecified; H40.9 Unspecified glaucoma; J45.909 Unspecified asthma, uncomplicated; L85.3 Xerosis cutis; M54.50 Low back pain, unspecified; R73.03 Prediabetes; Z62.810 Personal history of physical and sexual abuse in childhood; Z91.410 Personal history of adult physical and sexual abuse
CPT/HCPCS: 36415; 80053; 80305; 80307; 81003; 82962; 85027; 86780; 87389; 87811; 90656; 93005; 93010; G0008; J0475